=== PATIENT | female | born 1990 | race Caucasian/White ===

== ENCOUNTER 2020-08-26 00:09 | Emergency (ER) | payer OTHER, SELFPAY ==
--- NOTE | ~2020-08-26 | XR_ITS ---
EXAMINATION: XR CHEST CLINICAL INFORMATION: Cough COMPARISON: 10/06/2012 TECHNIQUE: AP portable upright view of the chest FINDINGS: Lungs are clear. No consolidation, pneumothorax, or pleural effusion. Cardiac and mediastinal contours are normal. Pulmonary vasculature is unremarkable. Osseous structures are unremarkable. XR/XR chest 1V IMPRESSION: No acute cardiopulmonary findings
[2020-08-26 00:37] VITALS: BP 104/61; PULSE 73; RESP 15; TEMP 36.8; O2SAT 100; BMI 27.4
[2020-08-26 00:49] VITALS: O2SAT 100
[2020-08-26 01:27] LABS: COVID-19 Test Negative (Negative)
--- NOTE | 2020-08-26 01:29 | ED.URI ---
HPI - URI/Sore Throat General Chief Complaint: Upper Respiratory Symptoms Stated Complaint: Flu Like Symptoms Time Seen by Provider: 08/26/20 01:02 Source: patient Mode of arrival: ambulatory Limitations: no limitations History of Present Illness HPI Narrative: 20-year-old female who denies significant past medical or surgical history she presents today with complaint of states she woke up this morning with runny nose and congestion feeling like she has sinus congestion. States she gradually developed a cough throughout the day with slight wheezing with associated cough. States she has not had any fever. States with the cough she had slight shortness of breath but otherwise no shortness of breath on exertion or at rest. No chest pain. Additionally she does report that her boyfriend tested positive today for COVID-19. States she has had COVID-19 in the past April. MD elicited complaint: cough, rhinorrhea and nasal congestion Onset (ago): day(s) (1) Severity: moderate Description of mucous: clear Able to tolerate fluids by mouth: Yes Exacerbating factors: nothing Relieving factors: nothing Context: sick contacts Associated symptoms: denies other symptoms Treatments prior to arrival: none Related Data Previous Rx's Medication Instructions Recorded albuterol sulfate 2 puff INHALATION Q4-6H PRN #8.5 g 08/26/20 azithromycin [Zithromax Z-Nish] See Rx Instructions .ROUTE 08/26/20 .COMPLEX #6 tab prednisone 60 mg PO DAILY 5 Days #15 tab 08/26/20 Allergies Allergy/AdvReac Type Severity Reaction Status Date / Time amoxicillin [AMOXICILLIN] Allergy Intermediate HIVES Unverified 11/17/19 16:05 Penicillins [PENICILLINS] Allergy Mild HIVES Unverified 11/17/19 16:05 penicillin V Allergy Unknown Verified 02/24/14 00:00 oxycodone [From PERCOCET] AdvReac Intermediate NAUSEA & Unverified 11/17/19 16:05 VOMITING Review of Systems Review of Systems: Constitutional: No Weight loss, No Fever, No Chills, No Night Sweats, No Fatigue, No Malaise ENT/Mouth: No Hearing loss, No Ear Pain, + Nasal Congestion, No Sinus Pain, No Hoarseness, No sore throat, + Rhinorrhea, No Swallowing Difficulty Eyes: No Eye Pain, No Swelling, No Redness, No Foreign Body, No Discharge, No Vision Changes Cardiovascular: No Chest Pain, No SOB, No Dyspnea on Exertion, No Orthopnea, No Edema, No Palpitations Respiratory: + Cough, No Sputum, No Wheezing, No Smoke Exposure, No Dyspnea Gastrointestinal: No Nausea, No Vomiting, No Diarrhea, No Constipation, No abdominal Pain, No Hematochezia, No Melena Genitourinary: no irregular bleeding, No Dysuria, No Urinary Frequency, No Hematuria, No Urinary Incontinence, No Urgency, No Flank Pain, No Urinary Flow Changes, No Hesitancy Musculoskeletal: No joint pain, No Myalgias, No Joint Swelling Skin: No Skin Lesions, No rash Neuro: No Weakness, No Numbness, No Paresthesias, No Loss of Consciousness, No Dizziness, No Headache Psych: No Social Issues Heme/Lymph: No Bruising, No Bleeding,No Lymphadenopathy Endocrine: No Polyuria, No Polydipsia, No Temperature Intolerance Yes all other systems are reviewed and are negative [facility] Past Medical History Medical History (Updated 08/26/20 @ 01:31 by Aman Murray NP) No known health problems Surgical History (Updated 08/26/20 @ 00:44 by Debbie Larsen) Hx of appendectomy Social History Social History Alcohol intake: never Patient Tobacco Use Status: Never used Tobacco Use of substances other than those prescribed or required for medical reasons: Yes Substance Use Type: Marijuana Substance Use Frequency: Daily Advance Directives: No Patient : Yes Physical Exam Vital Signs: Vital Signs: Last Vital Signs Temp 98.3 F 08/26/20 00:37 Pulse 73 08/26/20 00:37 Resp 15 08/26/20 00:37 BP 104/61 08/26/20 00:37 Pulse Ox 100 08/26/20 00:49 Body Mass Index 27.4 Reviewed Const: General: cooperative and healthy appearing; No acute distress or intoxicated appearing Nutritional Appearance: average body habitus Orientation/consciousness: patient oriented x3 HENMT: Head: Yes normal to inspection Ears: hearing grossly normal bilaterally Eyes: General: appearance normal, both eyes and all related structures Visual Huynh: normal visual huynh by confrontation Neck: Neck: Yes normal visual inspection, No positive Brudzinski's sign, No positive Kernig's sign and No tender Thyroid: Thyroid normal Chest: Chest palpation & inspection: normal inspection of the chest Resp: Other: slight dry bronchial cough Effort & Inspection: normal respiratory effort Auscultation: clear to auscultation bilaterally Cardio: Jugular venous distension: no JVD Rhythm: regular rhythm Heart sounds: S1 normal heart sound present and S2 normal heart sound present GI: Inspection: Yes normal to inspection Percussion: Yes normal to percussion Auscultation: normal bowel sounds : General: Yes no CVA tenderness Back/Spine/Pelvis: Back: no CVA tenderness Skin: General skin exam: no rashes or lesions noted Neuro: General: patient oriented x3 Extrem: General: Yes normal to inspection Course Reevaluation(s) Reevaluation #1: COVID-19 negative aware this could be early false negative she must follow guidelines Chest x-ray unremarkable No chest pain shortness of breath Pulse ox 100% on room air Does have slight dry bronchial cough with forced expiratory wheezing. She does have history of bronchitis Will start her on albuterol inhaler, azithromycin and prednisone. Will discharge home with clear precaution return and follow-up instructions. She feels comfortable plan. Stable for discharge. MDM - URI/Sore Throat Lab Data Labs: Lab Results 08/26/20 Range/Units 01:06 COVID-19 (KAREN) Negative (Negative) COVID-19 Clin Com See Note Discharge Plan Discharge Clinical Impression: Upper respiratory infection, Bronchitis Patient Disposition: Home, Self-Care Instructions: Upper Respiratory Infection (ED), Acute Bronchitis (ED) Additional Instructions: your chest x-ray did not show any evidence of acute disease Your COVID test was negative- given that your exposure to her boyfriend who is COVID positive and you having similar symptoms I suspect that this may be a false negative for this reason you should quarantine yourself Social distancing Push fluids and supportive care Taking medication prescribed Return if any concerns or worsening symptoms including chest pain, shortness of breath, chest pain, nausea, vomiting or any other concerning symptoms otherwise do tele visit with her primary care doctor in the next 7 days. thank you Prescriptions: New azithromycin [Zithromax Z-Nish] 250 mg tablet See Rx Instructions .ROUTE .COMPLEX Qty: 6 RF: 0 prednisone 20 mg tablet 60 mg PO DAILY 5 Days Qty: 15 RF: 0 albuterol sulfate 90 mcg/actuation HFA aerosol inhaler 2 puff inhalation Q4-6H PRN (Reason: shortness of breath or wheezing) Qty: 8.5 RF: 0 Referrals: Physician,Unknown [Primary Care Provider] - 1 week
== END 2020-08-26 01:40 | disposition home or self-care (01) ==
PROVIDERS: Nurse Practitioner Primary Care; Emergency Provider Emergency Medicine
DX: J06.9 Acute upper respiratory infection, unspecified (principal); J40 Bronchitis, not specified as acute or chronic; Z20.822 Contact with and (suspected) exposure to COVID-19
CPT/HCPCS: 36415; 71045; 87635; 99283; 99284

== ENCOUNTER 2021-01-24 10:08 | Emergency (ER) | payer OTHER, SELFPAY ==
--- NOTE | ~2021-01-24 | US_ITS ---
EXAMINATION: US ABDOMEN LIMITED CLINICAL INFORMATION: Abdominal pain. Question gallstones.. COMPARISON: Abdomen and pelvic CT of 04/10/2017, abdominal ultrasound of 09/25/2014 TECHNIQUE: Real-time imaging of the gallbladder as requested by referring provider FINDINGS: GALLBLADDER: The gallbladder is physiologically distended. Multiple mobile gallstones are noted. No evidence of gallbladder wall thickening or pericholecystic fluid. COMMON BILE DUCT: The visualized common bile duct is normal in caliber measuring 0.3 cm in diameter. LIVER: The visualized portions are unremarkable. FREE FLUID: None. US/US abdomen limited IMPRESSION: Cholelithiasis without sonographic evidence of acute cholecystitis. No evidence of dilatation of the visualized common bile duct. No filling defect is noted in the visualized common bile duct.
[2021-01-24 10:12] VITALS: BP 135/47; PULSE 79; RESP 18; TEMP 37.1; O2SAT 100; BMI 19.9
--- NOTE | 2021-01-24 10:22 | ECG_ITS ---
Test Reason : ABDOMINAL PAIN Blood Pressure : / mmHG Vent. Rate : 066 BPM Atrial Rate : 066 BPM P-R Int : 136 ms QRS Dur : 090 ms QT Int : 432 ms P-R-T Axes : 012 061 045 degrees QTc Int : 452 ms Normal sinus rhythm Normal ECG No previous ECGs available Referred By: Randy Proctor Electronically Signed By:MICHAEL HART MD
--- NOTE | 2021-01-24 10:41 | ED.ABDPAIN ---
HPI - Abdominal Pain General Chief Complaint: Abdominal Pain <SEBASTIEN Porras Last Filed: 01/24/21 16:02> Stated Complaint: upper abd pain <SEBASTIEN Porras Last Filed: 01/24/21 16:02> Time Seen by Provider: 01/24/21 12:57 <SEBASTIEN Porras Last Filed: 01/24/21 16:02> Source: patient <SEBASTIEN Porras Last Filed: 01/24/21 16:02> Mode of arrival: ambulatory <SEBASTIEN Porras Last Filed: 01/24/21 16:02> Limitations: no limitations <SEBASTIEN Porras Last Filed: 01/24/21 16:02> History of Present Illness HPI narrative: 30 yold female with no pmh presents to the ED for upper/RUQ abdominal pain. Patient states everytime she has her menstruation she has this pain. Patient denies any nausea and emesis. patient states no lower abdominal pain, fever, chills, flank pain, chest pain, shortness of breath, or back pain. <SEBASTIEN Porras Last Filed: 01/24/21 16:02> Related Data Home Medications: Previous Rx's Medication Instructions Recorded albuterol sulfate 90 mcg/actuation 2 puff INHALATION Q4-6H PRN #8.5 g 08/26/20 aerosol inhaler azithromycin 250 mg tablet See Rx Instructions .ROUTE 08/26/20 (Zithromax Z-Nish) .COMPLEX #6 tab prednisone 20 mg tablet 60 mg PO DAILY 5 Days #15 tab 08/26/20 ketorolac 10 mg tablet 10 mg PO QID PRN 5 Days #20 tab 01/24/21 <SEBASTIEN Porras Last Filed: 01/24/21 16:02> Allergies/Adverse Reactions: Allergies Allergy/AdvReac Type Severity Reaction Status Date / Time amoxicillin [AMOXICILLIN] Allergy Intermediate HIVES Unverified 11/17/19 16:05 Penicillins [PENICILLINS] Allergy Mild HIVES Unverified 11/17/19 16:05 penicillin V Allergy Unknown Verified 02/24/14 00:00 oxycodone [From PERCOCET] AdvReac Intermediate NAUSEA & Unverified 11/17/19 16:05 VOMITING <SEBASTIEN Porras Last Filed: 01/24/21 16:02> Review of Systems Review of Systems Yes all other systems are reviewed and are negative <SEBASTIEN Porras - Last Filed: 01/24/21 16:02> Constitutional: Reports as per HPI and Reports no additional constitutional complaints <SEBASTIEN Porras Last Filed: 01/24/21 16:02> Eyes: Reports as per HPI and Reports no additional eye complaints <SEBASTIEN Porras - Last Filed: 01/24/21 16:02> Reports system reviewed and no additional complaints, except as documented and Reports as per HPI <SEBASTIEN Porras Last Filed: 01/24/21 16:02> Cardiovascular: Reports as per HPI and Reports no additional cardiovascular complaints <SEBASTIEN Porras Last Filed: 01/24/21 16:02> Respiratory: Reports as per HPI and Reports no additional respiratory complaints <SEBASTIEN Porras Last Filed: 01/24/21 16:02> Gastrointestinal: Reports as per HPI, Reports no additional gastrointestinal complaints and Reports abdominal pain (upper abdominal pain. ) <SEBASTIEN Porras Last Filed: 01/24/21 16:02> Genitourinary: Reports no additional female genitourinary complaints and Reports as per HPI <SEBASTIEN Porras Last Filed: 01/24/21 16:02> Comments: menstruation <SEBASTIEN Porras Last Filed: 01/24/21 16:02> Musculoskeletal: Reports no additional musculoskeletal complaints and Reports as per HPI <SEBASTIEN Porras Last Filed: 01/24/21 16:02> Psychiatric: Reports no additional psychiatric complaints and Reports as per HPI <SEBASTIEN Porras Last Filed: 01/24/21 16:02> Physical Exam Vital Signs: Vital Signs: Last Vital Signs Temp 98.3 F 01/24/21 13:19 Pulse 58 01/24/21 13:19 Resp 16 01/24/21 13:19 BP 105/61 01/24/21 13:19 Pulse Ox 100 01/24/21 13:19 Body Mass Index 19.9 <SEBASTIEN Porras Last Filed: 01/24/21 16:02> Vital Signs: Last Vital Signs Temp 98.3 F 01/24/21 13:19 Pulse 58 01/24/21 13:19 Resp 16 01/24/21 13:19 BP 105/61 01/24/21 13:19 Pulse Ox 100 01/24/21 13:19 Body Mass Index 19.9 <Zhen Neff MD - Last Filed: 01/24/21 13:16> Const: General: cooperative, healthy appearing, comfortable, no acute distress, well developed, alert, awake, Physically active and acute distress <SEBASTIEN Porras Last Filed: 01/24/21 16:02> Orientation/consciousness: patient oriented x3 <SEBASTIEN Porras Last Filed: 01/24/21 16:02> HENMT: Head: Yes normal to inspection, Yes No palpable skull fracture present, Yes normocephalic and Yes atraumatic <SEBASTIEN Porras Last Filed: 01/24/21 16:02> Eyes: General: appearance normal, both eyes and all related structures <SEBASTIEN Porras - Last Filed: 01/24/21 16:02> Neck: Neck: Yes normal visual inspection, Yes full ROM, Yes no lymphadenopathy, Yes no meningeal signs, Yes trachea midline, Yes supple, No anterior neck swelling and No tender <SEBASTIEN Porras Last Filed: 01/24/21 16:02> Chest: Chest palpation & inspection: normal inspection of the chest and normal palpation of entire chest wall <SEBASTIEN Porras Last Filed: 01/24/21 16:02> Resp: Effort & Inspection: normal respiratory effort and able to speak in complete sentences <SEBASTIEN Porras Last Filed: 01/24/21 16:02> Auscultation: clear to auscultation bilaterally <SEBASTIEN Porras Last Filed: 01/24/21 16:02> Cardio: Jugular venous distension: no JVD <SEBASTIEN Porras Last Filed: 01/24/21 16:02> Heart sounds: S1 normal heart sound present and S2 normal heart sound present <SEBASTIEN Porras Last Filed: 01/24/21 16:02> GI: Inspection: Yes normal to inspection and No abdominal wall ecchymosis <SEBASTIEN Porras - Last Filed: 01/24/21 16:02> Palpation (GI): Soft to palpation, not firm, Tenderness to palpation present (GI) in the epigastrum and in the RUQ, no guarding and not rigid <SEBASTIEN Porras Last Filed: 01/24/21 16:02> : General: No CVA tenderness and Yes no CVA tenderness <SEBASTIEN Porras Last Filed: 01/24/21 16:02> Back/Spine/Pelvis: Back: no CVA tenderness, No CVA tenderness and No back tenderness <SEBASTIEN Porras Last Filed: 01/24/21 16:02> Skin: General skin exam: no rashes or lesions noted and elasticity normal <SEBASTIEN Porras Last Filed: 01/24/21 16:02> Neuro: General: patient oriented x3, moves all extremities, no meningeal signs and CN's II-XI intact bilaterally <SEBASTIEN Porras Last Filed: 01/24/21 16:02> Cranial nerves: Yes CN's II-XII intact bilaterally <SEBASTIEN Porras Last Filed: 01/24/21 16:02> Extrem: General: Yes normal to inspection and Yes full ROM <SEBASTIEN Porras Last Filed: 01/24/21 16:02> Psych: Appearance: grossly normal, well kempt and not disheveled <SEBASTIEN Porras Last Filed: 01/24/21 16:02> Course Course Course Narrative: Bedside ultrasound was done which showed gallstones. Will do basic labs and send for official ultraousnd. patient has chronic anemic due to history heavy bleeding menstruation. Patient states she has been non-compliant with her Iron pills. GI cocktail ordered <SEBASTIEN Porras Last Filed: 01/24/21 16:02> Reevaluation(s) Reevaluation #1: Patient CBC shows chronic anemia. patient presently is on her menstruation. Vital signs stable. not suspecting GI bleed. patient denies hemoorhaging bleeding. Patient educated on being compliant with Her iron pills. Offical ultrasould pending <SEBASTIEN Porras Last Filed: 01/24/21 16:02> Time: 12:15 <SEBASTIEN Porras - Last Filed: 01/24/21 16:02> Reevaluation #2: Official ultrasound shows gallstones. Results were discussed the patient was informed presently no indication for surgery there is no cholecystitis. Patient informed to follow-up with outpatient surgery. Patient educated on changing her diet decrease in fatty foods fried food due to gallstones. Patient is safe for discharge <SEBASTIEN Porras - Last Filed: 01/24/21 16:02> discussed plan with SEBASTIEN Proctor <Zhen Neff MD - Last Filed: 01/24/21 13:16> Time: 13:16 <SEBASTIEN Porras - Last Filed: 01/24/21 16:02> 13:15 <Zhen Neff MD - Last Filed: 01/24/21 13:16> Reevaluation #3: Official ultrasound shows gallstones. Results were discussed the patient was informed presently no indication for surgery there is no cholecystitis. Patient informed to follow-up with outpatient surgery. Patient educated on changing her diet decrease in fatty foods fried food due to gallstones. Patient is safe for discharge. No blood transfusion indicated. Patient is hemodynamically stable <SEBASTIEN Porras - Last Filed: 01/24/21 16:02> MDM - Abdominal Pain MDM Narrative Medical decision making narrative: Gallstones <SEBASTIEN Porras - Last Filed: 01/24/21 16:02> Lab Data Result diagrams: : 01/24/21 10:39 01/24/21 10:39 <SEBASTIEN Porras - Last Filed: 01/24/21 16:02> Labs: Lab Results 01/24/21 01/24/21 01/24/21 Range/Units 10:39 10:39 10:39 WBC 9.3 (4.8-10.8) X10*3/uL RBC 3.62 L (4.20-5.50) X10*6/uL Hgb 8.0 L (12.0-16.0) g/dl Hct 26.3 L (37.0-47.0) % MCV 72.7 L (80.0-98.0) fL MCH 22.1 L (27.0-33.0) pg MCHC 30.4 L (31.0-35.0) g/dl RDW 15.5 (11.0-16.0) % Plt Count 232 (160-400) X10*3/uL MPV 10.6 (9.4-12.3) fL Immature Gran % (Auto) 0.4 (0.0-0.4) % Neut % (Auto) 77.6 H (45-73) % Lymph % (Auto) 14.0 L (20-40) % [place] % (Auto) 7.2 (2-11) % Eos % (Auto) 0.5 (0-4) % Baso % (Auto) 0.3 (0-2) % Lymph # (Auto) 1.3 (1.2-4.9) X10*3/uL [place] # (Auto) 0.7 (0.1-1.2) X10*3/uL Eos # (Auto) 0.1 (0.0-0.4) X10*3/uL Baso # (Auto) 0.0 (0.0-0.2) X10*3/uL Abs Immat Gran (auto) 0.04 H (0.00-0.03) X10*3/uL Absolute Neuts (auto) 7.2 (2.0-8.3) x10*3/uL Absolute Nucleated RBC 0.000 (0.0-0.012) X10*3/uL Nucleated RBC % (auto) 0.0 (0.0-0.2) /100WBC Sodium 138 (135-145) mmol/L Potassium 3.9 (3.3-5.1) mmol/L Chloride 109 H (96-108) mmol/L Carbon Dioxide 23 (22-29) mmol/L Anion Gap 10 L (12-20) BUN 9 (9-16) mg/dL Creatinine 0.73 (0.5-1.4) mg/dL Estim Creat Clear Calc 93.6 Estimated GFR > 60 Random Glucose 80 (60-115) mg/dL Calcium 8.5 (8.4-10.2) mg/dL Total Bilirubin 0.5 (0.0-1.0) mg/dL Direct Bilirubin 0.3 (0.0-0.5) mg/dL AST 21 (5-31) U/L ALT 15 (0-31) U/L Alkaline Phosphatase 47 (39-117) U/L Troponin I High Sens < 3.5 (<3.5-17.0) ng/L Total Protein 6.7 (6.5-8.0) g/dL Albumin 4.1 (3.5-5.0) g/dL Lipase 18 (8-78) U/L Beta HCG, Quant < 2 mIU/mL Urine Color Urine Appearance Urine pH (5.0-8.0) Ur Specific [place] (1.005-1.025) Urine Protein (NEG-TRACE) MG/DL Urine Glucose (UA) (NEG) MG/DL Urine Ketones (NEG) MG/DL Urine Blood (NEG) Urine Nitrite (NEG) Ur Leukocyte Esterase (NEG) 01/24/21 Range/Units 10:39 WBC (4.8-10.8) X10*3/uL RBC (4.20-5.50) X10*6/uL Hgb (12.0-16.0) g/dl Hct (37.0-47.0) % MCV (80.0-98.0) fL MCH (27.0-33.0) pg MCHC (31.0-35.0) g/dl RDW (11.0-16.0) % Plt Count (160-400) X10*3/uL MPV (9.4-12.3) fL Immature Gran % (Auto) (0.0-0.4) % Neut % (Auto) (45-73) % Lymph % (Auto) (20-40) % [place] % (Auto) (2-11) % Eos % (Auto) (0-4) % Baso % (Auto) (0-2) % Lymph # (Auto) (1.2-4.9) X10*3/uL [place] # (Auto) (0.1-1.2) X10*3/uL Eos # (Auto) (0.0-0.4) X10*3/uL Baso # (Auto) (0.0-0.2) X10*3/uL Abs Immat Gran (auto) (0.00-0.03) X10*3/uL Absolute Neuts (auto) (2.0-8.3) x10*3/uL Absolute Nucleated RBC (0.0-0.012) X10*3/uL Nucleated RBC % (auto) (0.0-0.2) /100WBC Sodium (135-145) mmol/L Potassium (3.3-5.1) mmol/L Chloride (96-108) mmol/L Carbon Dioxide (22-29) mmol/L Anion Gap (12-20) BUN (9-16) mg/dL Creatinine (0.5-1.4) mg/dL Estim Creat Clear Calc Estimated GFR Random Glucose (60-115) mg/dL Calcium (8.4-10.2) mg/dL Total Bilirubin (0.0-1.0) mg/dL Direct Bilirubin (0.0-0.5) mg/dL AST (5-31) U/L ALT (0-31) U/L Alkaline Phosphatase (39-117) U/L Troponin I High Sens (<3.5-17.0) ng/L Total Protein (6.5-8.0) g/dL Albumin (3.5-5.0) g/dL Lipase (8-78) U/L Beta HCG, Quant mIU/mL Urine Color STRAW Urine Appearance CLEAR Urine pH 6.0 (5.0-8.0) Ur Specific [place] <= 1.005 (1.005-1.025) Urine Protein NEG (NEG-TRACE) MG/DL Urine Glucose (UA) NEG (NEG) MG/DL Urine Ketones NEG (NEG) MG/DL Urine Blood NEG (NEG) Urine Nitrite NEG (NEG) Ur Leukocyte Esterase NEG (NEG) <SEBASTIEN Porras - Last Filed: 01/24/21 16:02> Lab Results 01/24/21 01/24/21 01/24/21 Range/Units 10:39 10:39 10:39 WBC 9.3 (4.8-10.8) X10*3/uL RBC 3.62 L (4.20-5.50) X10*6/uL Hgb 8.0 L (12.0-16.0) g/dl Hct 26.3 L (37.0-47.0) % MCV 72.7 L (80.0-98.0) fL MCH 22.1 L (27.0-33.0) pg MCHC 30.4 L (31.0-35.0) g/dl RDW 15.5 (11.0-16.0) % Plt Count 232 (160-400) X10*3/uL MPV 10.6 (9.4-12.3) fL Immature Gran % (Auto) 0.4 (0.0-0.4) % Neut % (Auto) 77.6 H (45-73) % Lymph % (Auto) 14.0 L (20-40) % [place] % (Auto) 7.2 (2-11) % Eos % (Auto) 0.5 (0-4) % Baso % (Auto) 0.3 (0-2) % Lymph # (Auto) 1.3 (1.2-4.9) X10*3/uL [place] # (Auto) 0.7 (0.1-1.2) X10*3/uL Eos # (Auto) 0.1 (0.0-0.4) X10*3/uL Baso # (Auto) 0.0 (0.0-0.2) X10*3/uL Abs Immat Gran (auto) 0.04 H (0.00-0.03) X10*3/uL Absolute Neuts (auto) 7.2 (2.0-8.3) x10*3/uL Absolute Nucleated RBC 0.000 (0.0-0.012) X10*3/uL Nucleated RBC % (auto) 0.0 (0.0-0.2) /100WBC Sodium 138 (135-145) mmol/L Potassium 3.9 (3.3-5.1) mmol/L Chloride 109 H (96-108) mmol/L Carbon Dioxide 23 (22-29) mmol/L Anion Gap 10 L (12-20) BUN 9 (9-16) mg/dL Creatinine 0.73 (0.5-1.4) mg/dL Estim Creat Clear Calc 93.6 Estimated GFR > 60 Random Glucose 80 (60-115) mg/dL Calcium 8.5 (8.4-10.2) mg/dL Total Bilirubin 0.5 (0.0-1.0) mg/dL Direct Bilirubin 0.3 (0.0-0.5) mg/dL AST 21 (5-31) U/L ALT 15 (0-31) U/L Alkaline Phosphatase 47 (39-117) U/L Troponin I High Sens < 3.5 (<3.5-17.0) ng/L Total Protein 6.7 (6.5-8.0) g/dL Albumin 4.1 (3.5-5.0) g/dL Lipase 18 (8-78) U/L Beta HCG, Quant < 2 mIU/mL Urine Color Urine Appearance Urine pH (5.0-8.0) Ur Specific [place] (1.005-1.025) Urine Protein (NEG-TRACE) MG/DL Urine Glucose (UA) (NEG) MG/DL Urine Ketones (NEG) MG/DL Urine Blood (NEG) Urine Nitrite (NEG) Ur Leukocyte Esterase (NEG) 01/24/21 Range/Units 10:39 WBC (4.8-10.8) X10*3/uL RBC (4.20-5.50) X10*6/uL Hgb (12.0-16.0) g/dl Hct (37.0-47.0) % MCV (80.0-98.0) fL MCH (27.0-33.0) pg MCHC (31.0-35.0) g/dl RDW (11.0-16.0) % Plt Count (160-400) X10*3/uL MPV (9.4-12.3) fL Immature Gran % (Auto) (0.0-0.4) % Neut % (Auto) (45-73) % Lymph % (Auto) (20-40) % [place] % (Auto) (2-11) % Eos % (Auto) (0-4) % Baso % (Auto) (0-2) % Lymph # (Auto) (1.2-4.9) X10*3/uL [place] # (Auto) (0.1-1.2) X10*3/uL Eos # (Auto) (0.0-0.4) X10*3/uL Baso # (Auto) (0.0-0.2) X10*3/uL Abs Immat Gran (auto) (0.00-0.03) X10*3/uL Absolute Neuts (auto) (2.0-8.3) x10*3/uL Absolute Nucleated RBC (0.0-0.012) X10*3/uL Nucleated RBC % (auto) (0.0-0.2) /100WBC Sodium (135-145) mmol/L Potassium (3.3-5.1) mmol/L Chloride (96-108) mmol/L Carbon Dioxide (22-29) mmol/L Anion Gap (12-20) BUN (9-16) mg/dL Creatinine (0.5-1.4) mg/dL Estim Creat Clear Calc Estimated GFR Random Glucose (60-115) mg/dL Calcium (8.4-10.2) mg/dL Total Bilirubin (0.0-1.0) mg/dL Direct Bilirubin (0.0-0.5) mg/dL AST (5-31) U/L ALT (0-31) U/L Alkaline Phosphatase (39-117) U/L Troponin I High Sens (<3.5-17.0) ng/L Total Protein (6.5-8.0) g/dL Albumin (3.5-5.0) g/dL Lipase (8-78) U/L Beta HCG, Quant mIU/mL Urine Color STRAW Urine Appearance CLEAR Urine pH 6.0 (5.0-8.0) Ur Specific [place] <= 1.005 (1.005-1.025) Urine Protein NEG (NEG-TRACE) MG/DL Urine Glucose (UA) NEG (NEG) MG/DL Urine Ketones NEG (NEG) MG/DL Urine Blood NEG (NEG) Urine Nitrite NEG (NEG) Ur Leukocyte Esterase NEG (NEG) <Zhen Neff MD - Last Filed: 01/24/21 13:16> Discharge Plan Discharge Clinical Impression: Cholelithiasis <SEBASTIEN Porras - Last Filed: 01/24/21 16:02> Patient Disposition: Home, Self-Care <SEBASTIEN Porras - Last Filed: 01/24/21 16:02> Instructions: Gallstones (ED) <SEBASTIEN Porras - Last Filed: 01/24/21 16:02> Additional Instructions: Your ultrasound shows gallstones. Her blood work came back at baseline. Presently no surgical intervention. Will be discharged with pain medications. Please cut down on fatty food and fried food. You need follow-up with surgeon. Return to the ED immediately for worsening abdominal pain, nausea, vomiting, fever, chills, green vomit, lower abdominal pain, weakness, dizziness, or any other concerning symptoms. <SEBASTIEN Porras - Last Filed: 01/24/21 16:02> Prescriptions: New ketorolac 10 mg tablet 10 mg PO QID PRN (Reason: pain) 5 Days Qty: 20 RF: 0 No Action azithromycin [Zithromax Z-Nish] 250 mg tablet See Rx Instructions .ROUTE .COMPLEX Qty: 6 RF: 0 prednisone 20 mg tablet 60 mg PO DAILY 5 Days Qty: 15 RF: 0 albuterol sulfate 90 mcg/actuation HFA aerosol inhaler 2 puff inhalation Q4-6H PRN (Reason: shortness of breath or wheezing) Qty: 8.5 RF: 0 <SEBASTIEN Porras - Last Filed: 01/24/21 16:02> Referrals: Janusz Wiggins MD [Physician] - 2 days (Cholelithiasis) <SEBASTIEN Porras - Last Filed: 01/24/21 16:02> Stand Alone Forms: Work/School Release <SEBASTIEN Porras - Last Filed: 01/24/21 16:02> Discharge Date/Time: 01/24/21 13:45 <SEBASTIEN Porras - Last Filed: 01/24/21 16:02> Print Language: Green[place]ic <SEBASTIEN Porras - Last Filed: 01/24/21 16:02> [facility] Past Medical History Medical History: Medical History (Updated 01/24/21 @ 13:32 by SEBASTIEN Porras) No known health problems <SEBASTIEN Porras - Last Filed: 01/24/21 16:02> Surgical History: Surgical History (Updated 08/26/20 @ 00:44 by Debbie Larsen) Hx of appendectomy <SEBASTIEN Porras - Last Filed: 01/24/21 16:02> Social History Social History: Social History Alcohol intake: never Patient Tobacco Use Status: Never used Tobacco Substance Use Type: Marijuana Advance Directives: No Patient : No <SEBASTIEN Porras Last Filed: 01/24/21 16:02>
[2021-01-24 10:45] LABS: MANUAL DIFF FLAG NO
[2021-01-24 10:50] LABS: Appearance Urine CLEAR; Color Urine STRAW; Glucose Urine UA NEG (NEG); Leukocyte Esterase Urine NEG (NEG); Nitrite Urine NEG (NEG); Specific Gravity - Urine <= 1.005 (1.005-1.025); Urine Blood NEG (NEG); Urine Ketones NEG (NEG); Urine Protein NEG (NEG-TRACE)
[2021-01-24 10:56] LABS: Basophils Percent Auto 0.3 % (0-2); Eosinophils Absolute Auto 0.1 X10*3/uL (0.0-0.4); Eosinophils Percent Auto 0.5 % (0-4); Hematocrit 26.3 % (37.0-47.0); Imm Gran Abs Auto 0.04 X10*3/uL (0.00-0.03); Imm Gran Pct Auto 0.4 % (0.0-0.4); Lymphocytes Absolute Auto 1.3 X10*3/uL (1.2-4.9); Mean Corpuscular HGB Conc 30.4 g/dl (31.0-35.0); Mean Corpuscular Hemoglobin 22.1 pg (27.0-33.0); Mean Corpuscular Volume 72.7 fL (80.0-98.0); Mean Platelet Volume 10.6 fL (9.4-12.3); Monocytes Absolute Auto 0.7 X10*3/uL (0.1-1.2); Monocytes Percent Auto 7.2 % (2-11); Neutrophils Absolute Auto 7.2 x10*3/uL (2.0-8.3); Neutrophils Percent Auto 77.6 % (45-73); Platelet Count 232 X10*3/uL (160-400); Red Blood Count 3.62 X10*6/uL (4.20-5.50); Red Cell Distribution Width 15.5 % (11.0-16.0); White Blood Count 9.3 X10*3/uL (4.8-10.8)
[2021-01-24] MEDS: Magnesium Hydrox/Alum Hydrox 30 ML ORAL.SUSP PO (11:05)
[2021-01-24] MEDS: PHENobarb/Hyoscy/Atropine/Scop 10 ML ELIXIR PO (11:05)
[2021-01-24] MEDS: Lidocaine HCl Viscous 2 % 15 ML SOLUTION MUCOUS MEM (11:10)
[2021-01-24] MEDS: Famotidine/PF 20 MG/2 ML VIAL IVPUSH (11:10)
[2021-01-24 11:12] LABS: Alanine Aminotransferase 15 U/L (0-31); Albumin Level 4.1 g/dL (3.5-5.0); Alkaline Phosphatase 47 U/L (39-117); Anion Gap 10 (12-20); Aspartate Amino Transferase 21 U/L (5-31); Bilirubin Direct 0.3 mg/dL (0.0-0.5); Bilirubin Total 0.5 mg/dL (0.0-1.0); Blood Urea Nitrogen 9 mg/dL (9-16); Calcium 8.5 mg/dL (8.4-10.2); Carbon Dioxide 23 mmol/L (22-29); Chloride 109 mmol/L (96-108); Creatinine Clr Calc Pharmacy 93.6; Estimated Glomerular Filt Rate > 60; Glucose Random 80 mg/dL (60-115); Lipase 18 U/L (8-78); Potassium 3.9 mmol/L (3.3-5.1); Sodium 138 mmol/L (135-145); Total Protein 6.7 g/dL (6.5-8.0)
[2021-01-24 11:18] LABS: HCG Quantitative < 2 mIU/mL; Troponin-I High Sensitivity < 3.5 ng/L (<3.5-17.0)
[2021-01-24] MEDS: Ketorolac Tromethamine 15 MG/ML VIAL 30 MG IVPUSH (13:06)
[2021-01-24 13:19] VITALS: BP 105/61; PULSE 58; RESP 16; TEMP 36.8; O2SAT 100
== END 2021-01-24 13:45 | disposition home or self-care (01) ==
PROVIDERS: Physician Assistant; Emergency Provider Emergency Medicine
DX: K80.20 Calculus of gallbladder without cholecystitis without obstruction (principal); R10.9 Unspecified abdominal pain; D50.0 Iron deficiency anemia secondary to blood loss (chronic); Z91.14 Patient's other noncompliance with medication regimen
CPT/HCPCS: 36415; 76705; 80053; 81003; 82248; 83690; 84484; 84702; 85025; 93005; 96374; 96375; 99284; J1885

== ENCOUNTER 2021-02-01 00:06 | Emergency (ER) | payer OTHER, SELFPAY ==
[2021-02-01 00:08] VITALS: BP 118/64; PULSE 62; RESP 16; TEMP 36.6; O2SAT 100; BMI 19.9
--- NOTE | 2021-02-01 00:30 | ED.HA ---
HPI - Headache General Chief Complaint: Headache Stated Complaint: Migraine Time Seen by Provider: 02/01/21 00:13 Source: patient and old records reviewed Mode of arrival: ambulatory Limitations: no limitations History of Present Illness MD elicited complaint: headache and migraine Pertinent past history: migraines Onset (ago): hour(s) (230pm) Onset description: gradually and while at rest Location: left Severity: moderate Quality & Timing: throbbing Exacerbating factors: light and noise Relieving factors: prescription medication (has not taken her amitryptiline due to working nights wasn't aware she could take it in AM when she sleep able to sleep for over 7 hours most days) Context: occurred at rest Associated symptoms: nausea Treatments prior to arrival: none Related Data Previous Rx's Medication Instructions Recorded albuterol sulfate 90 mcg/actuation 2 puff INHALATION Q4-6H PRN #8.5 g 08/26/20 aerosol inhaler azithromycin 250 mg tablet See Rx Instructions .ROUTE 08/26/20 (Zithromax Z-Nish) .COMPLEX #6 tab prednisone 20 mg tablet 60 mg PO DAILY 5 Days #15 tab 08/26/20 ketorolac 10 mg tablet 10 mg PO QID PRN 5 Days #20 tab 01/24/21 ferrous sulfate 325 mg (65 mg 325 mg PO DAILY #30 tab 02/01/21 iron) tablet ondansetron 4 mg disintegrating 4 mg PO Q8H PRN #20 tab 02/01/21 tablet Allergies Allergy/AdvReac Type Severity Reaction Status Date / Time amoxicillin [AMOXICILLIN] Allergy Intermediate HIVES Verified 02/01/21 00:16 Penicillins [PENICILLINS] Allergy Mild HIVES Verified 02/01/21 00:16 penicillin V Allergy Unknown Unknown Verified 02/01/21 00:16 oxycodone [From PERCOCET] AdvReac Intermediate NAUSEA & Verified 02/01/21 00:16 VOMITING Review of Systems Review of Systems: Constitutional : No Fever, No Chills, No Fatigue ENT/Mouth : No sore throat, No Rhinorrhea Eyes: No Eye Pain, No Swelling, No Redness Cardiovascular : No Chest Pain, No SOB, No Dyspnea on Exertion Respiratory : No Cough, No Sputum Gastrointestinal : pos Nausea, No Vomiting, No Diarrhea, No abdominal Pain Genitourinary : No Dysuria, No Urinary Frequency, No Hematuria, Musculoskeletal : No joint pain, No Myalgias, No Joint Swelling Skin : No Skin Lesions, No rash Neuro : No Weakness, No Numbness, No Dizziness, positive Headache Psych : No Anxiety/Panic, No Depression Heme/Lymph: No Bruising, No Bleeding,No Lymphadenopathy Endocrine : No Polyuria, No Polydipsia All other systems reviewed and are negative REPLACED BY [facility] Past Medical History Attestation statement: The following information was validated with the patient. Medical History Migraines No known health problems Surgical History Hx of appendectomy Social History Social History Alcohol intake: never Patient Tobacco Use Status: Never used Tobacco Substance Use Type: Marijuana Advance Directives: No Patient : No Physical Exam Vital Signs: Vital Signs: Last Vital Signs Temp 97.8 F 02/01/21 00:08 Pulse 62 02/01/21 00:08 Resp 16 02/01/21 00:08 BP 118/64 02/01/21 00:08 Pulse Ox 100 02/01/21 00:08 BMI result Body Mass Index 19.9 Appearance: Alert. Oriented X3. No acute distress. Eyes: Pupils equal, round and reactive to light. ENT: Pharynx normal. Neck: Normal inspection. Neck supple. no meningeal signs CVS: Normal heart rate and rhythm. Pulses normal. Respiratory: No respiratory distress. Breath sounds normal. Abdomen: Soft and nontender. Skin: Skin warm and dry. Normal skin color. Normal skin turgor. Extremities: No lower extremity edema. No calf ttp Neuro: Oriented X 3. No motor deficit. No sensory deficit. Course Course Course Narrative: patient is not taking Fe because her PCP did not Rx it patient feels much better stable for DC MDM - Headache MDM Narrative Medical decision making narrative: 30 yo female with hx of migraines here with typical migraine no AC therapy, no fevers, no neuro deficits, gradual onset doubt [employer] infection/SAH - at this time will treat with supportive medications. We also discussed since she works nights 6 days a week and can sleep til 5 when she gets home at nine that she should start taking her TCA in the morning. She is aware. Lab Data Result diagrams: 02/01/21 00:54 02/01/21 00:54 Labs: Lab Results 02/01/21 02/01/21 Range/Units 00:54 00:54 WBC 3.5 L (4.8-10.8) X10*3/uL RBC 3.50 L (4.20-5.50) X10*6/uL Hgb 7.7 L (12.0-16.0) g/dl Hct 25.4 L (37.0-47.0) % MCV 72.6 L (80.0-98.0) fL MCH 22.0 L (27.0-33.0) pg MCHC 30.3 L (31.0-35.0) g/dl RDW 15.8 (11.0-16.0) % Plt Count 270 (160-400) X10*3/uL MPV 10.5 (9.4-12.3) fL Immature Gran % (Auto) 0.3 (0.0-0.4) % Neut % (Auto) 48.8 (45-73) % Lymph % (Auto) 38.1 (20-40) % [place] % (Auto) 8.5 (2-11) % Eos % (Auto) 3.7 (0-4) % Baso % (Auto) 0.6 (0-2) % Lymph # (Auto) 1.3 (1.2-4.9) X10*3/uL [place] # (Auto) 0.3 (0.1-1.2) X10*3/uL Eos # (Auto) 0.1 (0.0-0.4) X10*3/uL Baso # (Auto) 0.0 (0.0-0.2) X10*3/uL Abs Immat Gran (auto) 0.01 (0.00-0.03) X10*3/uL Absolute Neuts (auto) 1.7 L (2.0-8.3) x10*3/uL Absolute Nucleated RBC 0.000 (0.0-0.012) X10*3/uL Nucleated RBC % (auto) 0.0 (0.0-0.2) /100WBC Sodium 140 (135-145) mmol/L Potassium 4.0 (3.3-5.1) mmol/L Chloride 109 H (96-108) mmol/L Carbon Dioxide 25 (22-29) mmol/L Anion Gap 10 L (12-20) BUN 9 (9-16) mg/dL Creatinine 0.68 (0.5-1.4) mg/dL Estim Creat Clear Calc 100.5 Estimated GFR > 60 Random Glucose 89 (60-115) mg/dL Calcium 8.7 (8.4-10.2) mg/dL Discharge Plan Discharge Clinical Impression: Migraine Qualifiers: Migraine type: without aura Status migrainosus presence: without status migrainosus Intractability: not intractable Qualified Code(s): G43.009 - Migraine without aura, not intractable, without status migrainosus Iron (Fe) deficiency anemia Qualifiers: Iron deficiency anemia type: other iron deficiency Qualified Code(s): D50.8 - Other iron deficiency anemias Patient Disposition: Home, Self-Care Instructions: Migraine Headache (ED), Iron Deficiency Anemia (ED) Additional Instructions: return to ED for any worsening symptoms or concerns it is okay to take your amitryptiline before you sleep in the morning Prescriptions: New ferrous sulfate 325 mg (65 mg iron) tablet 325 mg PO DAILY Qty: 30 RF: 2 ondansetron 4 mg tablet,disintegrating 4 mg PO Q8H PRN (Reason: nausea and vomiting) Qty: 20 RF: 0 No Action azithromycin [Zithromax Z-Nish] 250 mg tablet See Rx Instructions .ROUTE .COMPLEX Qty: 6 RF: 0 prednisone 20 mg tablet 60 mg PO DAILY 5 Days Qty: 15 RF: 0 albuterol sulfate 90 mcg/actuation HFA aerosol inhaler 2 puff inhalation Q4-6H PRN (Reason: shortness of breath or wheezing) Qty: 8.5 RF: 0 ketorolac 10 mg tablet 10 mg PO QID PRN (Reason: pain) 5 Days Qty: 20 RF: 0 Stand Alone Forms: Work/School Release
[2021-02-01] MEDS: Metoclopramide HCl 10 MG/2 ML VIAL IVPUSH (00:49)
[2021-02-01] MEDS: diphenhydrAMINE HCL 50 MG/ML VIAL 25 MG IVPUSH (00:49)
[2021-02-01] MEDS: 0.9 % Sodium Chloride 1,000 ML 999 ML IV (00:49)
[2021-02-01] MEDS: Ketorolac Tromethamine 15 MG/ML VIAL IVPUSH (00:50)
[2021-02-01 00:59] LABS: MANUAL DIFF FLAG NO
[2021-02-01 01:01] LABS: Basophils Percent Auto 0.6 % (0-2); Eosinophils Absolute Auto 0.1 X10*3/uL (0.0-0.4); Eosinophils Percent Auto 3.7 % (0-4); Hematocrit 25.4 % (37.0-47.0); Hemoglobin 7.7 g/dl (12.0-16.0); Imm Gran Abs Auto 0.01 X10*3/uL (0.00-0.03); Imm Gran Pct Auto 0.3 % (0.0-0.4); Lymphocytes Absolute Auto 1.3 X10*3/uL (1.2-4.9); Lymphocytes Percent Auto 38.1 % (20-40); Mean Corpuscular HGB Conc 30.3 g/dl (31.0-35.0); Mean Corpuscular Volume 72.6 fL (80.0-98.0); Mean Platelet Volume 10.5 fL (9.4-12.3); Monocytes Absolute Auto 0.3 X10*3/uL (0.1-1.2); Monocytes Percent Auto 8.5 % (2-11); Neutrophils Absolute Auto 1.7 x10*3/uL (2.0-8.3); Neutrophils Percent Auto 48.8 % (45-73); Platelet Count 270 X10*3/uL (160-400); Red Cell Distribution Width 15.8 % (11.0-16.0); White Blood Count 3.5 X10*3/uL (4.8-10.8)
[2021-02-01 01:15] LABS: Anion Gap 10 (12-20); Blood Urea Nitrogen 9 mg/dL (9-16); Calcium 8.7 mg/dL (8.4-10.2); Carbon Dioxide 25 mmol/L (22-29); Chloride 109 mmol/L (96-108); Creatinine Clr Calc Pharmacy 100.5; Estimated Glomerular Filt Rate > 60; Glucose Random 89 mg/dL (60-115); Sodium 140 mmol/L (135-145)
== END 2021-02-01 01:45 | disposition home or self-care (01) ==
PROVIDERS: Emergency Provider Emergency Medicine
DX: G43.009 Migraine without aura, not intractable, without status migrainosus (principal); D50.8 Other iron deficiency anemias
CPT/HCPCS: 36415; 80048; 85025; 96361; 96374; 96375; 99283; 99284; J1200; J1885; J2765

== ENCOUNTER → 2021-03-11 14:43 | Outpatient (BNVA) | payer OTHER, SELFPAY | PROVIDERS: Visit Provider Surgery | DX: K80.20 Calculus of gallbladder without cholecystitis without obstruction (principal) | CPT/HCPCS: 99202 ==

== ENCOUNTER 2021-04-19 08:21 | Day surgery (SDC) | payer OTHER, SELFPAY ==
[2021-04-12 16:10] VITALS: BMI 20.2
--- NOTE | 2021-04-18 09:22 | P.CONAN_ITS ---
Documented by User: Mary Ann Felix NP 04/18/21 09:35 HPI - Anesthesia Eval Consult details Narrative: 31yo F for Cholecystectomy Laparoscopic,poss open PMFSH Active Problems Active Problems: All Active Problems (Updated 03/11/21 @ 14:59 by Janusz Wiggins MD) Gallstones (Acute) Past Medical History Medical History Anemia Gallstones Hx MRSA infection Migraines No known health problems Surgical History Surgical History Hx of appendectomy Social History Social History Are you a primary home health care case manager to a significant other at home: No Do you presently have visiting nurse or other home services: No Alcohol intake: never Patient Tobacco Use Status: Never used Tobacco Use of substances other than those prescribed or required for medical reasons: Yes Substance Use Type: Marijuana Substance Use Frequency: Daily Have you been hit, kicked, punched, or otherwise hurt by someone within the past year? If so, by whom?: No Are you DNR?: No Advance Directives: No Advance Directives Information Provided: No Advance Directives on File: No Recently lost weight without trying: No Eating poorly because of decreased appetite: No Nutrition Risks: No Nutritional Risk Meds Allergies Allergy/AdvReac Type Severity Reaction Status Date / Time amoxicillin [AMOXICILLIN] Allergy Intermediate HIVES Verified 04/19/21 08:39 Penicillins [PENICILLINS] Allergy Mild HIVES Verified 04/19/21 08:39 oxycodone [From PERCOCET] AdvReac Intermediate NAUSEA & Verified 04/19/21 08:39 VOMITING Home Medications Medication Instructions Recorded Confirmed Last Taken Type amitriptyline 10 mg tablet 1 tab PO BEDTIME 04/12/21 04/12/21 Unknown History Exam Exam Date and Time: April 18, [id number] Height,Weight and Vital Signs: Height 5 ft 4 in Weight 53.524 kg Pertinent Lab Results Pertinent Lab Results: Laboratory Tests 02/01/21 02/01/21 00:54 00:54 WBC 3.5 L Hgb 7.7 L Hct 25.4 L Plt Count 270 Sodium 140 Potassium 4.0 Chloride 109 H Carbon Dioxide 25 BUN 9 Creatinine 0.68 Narrative Narrative: EKG 12/2020 Vent. Rate : 066 BPM ? ? Atrial Rate : 066 BPM ?? P-R Int : 136 ms? QRS Dur : 090 ms ? ? QT Int : 432 ms ? ? ? P-R-T Axes : 012 061 045 degrees ?? QTc Int : 452 ms ? Normal sinus rhythm Normal ECG No previous ECGs available Assessment and Plan Assessment Anesthesia Assessment: Chart Reviewed Documented by User: Viviane Gallagher MD 04/19/21 11:27 PMFSH Past Medical History Medical History Anemia Gallstones Hx MRSA infection Migraines No known health problems Family History Family history of problems with anesthesia: No Surgical History Surgical History Hx of appendectomy History of Problems with Anesthesia: No Social History Social History Are you a primary home health care case manager to a significant other at home: No Do you presently have visiting nurse or other home services: No Alcohol intake: never Patient Tobacco Use Status: Never used Tobacco Use of substances other than those prescribed or required for medical reasons: Yes Substance Use Type: Marijuana Substance Use Frequency: Daily Have you been hit, kicked, punched, or otherwise hurt by someone within the past year? If so, by whom?: No Are you DNR?: No Advance Directives: No Advance Directives Information Provided: No Advance Directives on File: No Recently lost weight without trying: No Eating poorly because of decreased appetite: No Nutrition Risks: No Nutritional Risk Meds Allergies Allergy/AdvReac Type Severity Reaction Status Date / Time amoxicillin [AMOXICILLIN] Allergy Intermediate HIVES Verified 04/19/21 08:39 Penicillins [PENICILLINS] Allergy Mild HIVES Verified 04/19/21 08:39 oxycodone [From PERCOCET] AdvReac Intermediate NAUSEA & Verified 04/19/21 08:39 VOMITING Home Medications Medication Instructions Recorded Confirmed Last Taken Type amitriptyline 10 mg tablet 1 tab PO BEDTIME 04/12/21 04/12/21 Unknown History Exam Height,Weight and Vital Signs: Height 5 ft 4 in Weight 53.524 kg Vital Signs Temp Pulse Resp BP Pulse Ox 98.1 F 67 16 108/50 L 99 04/19/21 09:10 04/19/21 09:10 04/19/21 09:10 04/19/21 09:10 04/19/21 09:10 Pertinent Lab Results Pertinent Lab Results: Laboratory Tests 02/01/21 02/01/21 00:54 00:54 WBC 3.5 L Hgb 7.7 L Hct 25.4 L Plt Count 270 Sodium 140 Potassium 4.0 Chloride 109 H Carbon Dioxide 25 BUN 9 Creatinine 0.68 Lab Results 04/19/21 04/19/21 Range/Units 08:40 09:03 WBC 3.5 L (4.8-10.8) X10*3/uL RBC 3.84 L (4.20-5.50) X10*6/uL Hgb 10.1 L D (12.0-16.0) g/dl Hct 32.4 L D (37.0-47.0) % MCV 84.4 (80.0-98.0) fL MCH 26.3 L (27.0-33.0) pg MCHC 31.2 (31.0-35.0) g/dl RDW 18.2 H (11.0-16.0) % Plt Count 200 D (160-400) X10*3/uL MPV 10.8 (9.4-12.3) fL Absolute Nucleated RBC 0.000 (0.0-0.012) X10*3/uL Nucleated RBC % (auto) 0.0 (0.0-0.2) /100WBC Urine Test NEGATIVE (NEGATIVE) Airway Mallampati Class: II TM Dist: >3cm Neck ROM: Full Loose/Missing/Broken Teeth: Yes (1Missing lower Right and left) Heart: RRR Lungs: CTAB Assessment and Plan Assessment Anesthesia Assessment: Anesthesia Plan Discussed Final Anesthetic Review Family History of Problems with Anesthesia: No History of Problems with Anesthesia: No NPO: Yes ASA Class: II Final Preanesthetic Review: No Changes in Pt Med Stat, Meds/Allgs Chart Reviewed, Consent Obtained/Reviewed and Anes Risks/Benef Reviewed Patient Risk: Low Procedure Risk: Low Assessment/Block/Sedation in SS: Assess/Block/Sedation-SS Anesthetic Plan Anesthetic Plan: GA Disposition: Standard PACU
[2021-04-19] VITALS (16 sets, daily range): BP systolic 88–124; BP diastolic 40–75; PULSE 53–85; RESP 14–17; TEMP 36.1–36.7; O2SAT 97–100
[2021-04-19 08:51] LABS: UPreg QC Valid YES; Urine Pregnancy NEGATIVE (NEGATIVE)
--- NOTE | 2021-04-19 08:54 | MHC.SHP ---
Pre-Procedural Eval Section A Date of Service: 04/19/21 Section B Chief Complaint: calculus of gallbladder Details of Present Illness: has had periodic epigastric and right upper quadrant pain with gallstones on ultrasound Relevant Family History (Specify if Yes): No Relevant Social History: None Present Medications: see Short Stay Collaborative assessment Medical History: No relevant PMH History of Previous Operations: No relevant previous surgery Allergies: Allergies Allergy/AdvReac Type Severity Reaction Status Date / Time amoxicillin [AMOXICILLIN] Allergy Intermediate HIVES Verified 04/19/21 08:39 Penicillins [PENICILLINS] Allergy Mild HIVES Verified 04/19/21 08:39 oxycodone [From PERCOCET] AdvReac Intermediate NAUSEA & Verified 04/19/21 08:39 VOMITING Review of Systems Sugical H&P ROS: Negative: Constitution, Cardiovascular, Respiratory, Neurological, Psychiatric, Hem-Onc, Allergic/Immunologic, Gastrointestinal, Genitourinary, Musculoskeletal, Integumentary, Endocrine and Eyes/Ears/Nose/Throat Exam Surgical H&P Exam: Normal: HEENT, Normal: Heart, Normal: Lungs, Normal: Extremities, Normal: Abdomen, Normal: Skin and Normal: Neurological Plan Diagnosis/Plan: Unchanged I have reviewed the history and physical and performed a pertinent physical examination on my patient. No changes have occurred unless specified.
[2021-04-19] MEDS: Acetaminophen 325 MG TABLET 650 MG PO (09:11)
[2021-04-19] MEDS: Lactated Ringers 1,000 ML 100 ML IVCONT (09:12)
[2021-04-19 09:18] LABS: Hematocrit 32.4 % (37.0-47.0); Hemoglobin 10.1 g/dl (12.0-16.0); Mean Corpuscular HGB Conc 31.2 g/dl (31.0-35.0); Mean Corpuscular Hemoglobin 26.3 pg (27.0-33.0); Mean Corpuscular Volume 84.4 fL (80.0-98.0); Mean Platelet Volume 10.8 fL (9.4-12.3); Platelet Count 200 X10*3/uL (160-400); Red Blood Count 3.84 X10*6/uL (4.20-5.50); Red Cell Distribution Width 18.2 % (11.0-16.0); White Blood Count 3.5 X10*3/uL (4.8-10.8)
--- NOTE | 2021-04-19 11:13 | P.OP_ITS ---
Operative Note Operative Note Date of Service: 04/19/21 Narrative: Preop diagnosis: Symptomatic gallstones Postop diagnosis: Symptomatic gallstones Procedure: Laparoscopic cholecystectomy Surgeon: Janusz Wiggins MD outpatient physical therapist assistant: SEBASTIEN Rivera The patient is a 31 year female with periodic right upper quadrant and epigastric pain and tenderness, along with gallstones. Her symptoms were consistent with gallbladder disease. She therefore wanted to proceed with cho lecystectomy. She understood the technique of laparoscopic cholecystectomy and possible open. She was aware of the risks including but not limited to bleeding, infections, injury to bowel, liver and bile ducts, as well as the benefits and alternatives. She had given consent She was brought to the operating room. She was placed supine under general anesthesia via endotracheal tube. The abdomen is prepped and draped in the usual sterile fashion. A surgical time-out was done. The patient received Cefotan 2 g IV preoperatively I made a short incision in the skin on the supra umbilical margin using a blade 15. This was carried down through the full-thickness of the skin subcutaneous fat. The peritoneum was entered. Through this incision a Tracy port was introduced. Pneumoperitoneum was introduced to a pressure of 15 mm hg. From here on, the rest of the procedure as done under vision with the laparoscopic With laparoscopic visualization, I proceeded to insert a 5/12 mm port in the epigastric area below the subcostal margin via small stab incision. 5 mm ports introduced through small incisions below the subcostal margin along the anterior axillary line and the midclavicular line. Graspers were placed through these working ports. The patient was placed in head-up and [id number] position. The gallbladder was seen. This was 9 inflamed and was supple. We were able to therefore apply grasper at the fundus and this was used to retract the gallbladder cephalad. Another grasper was applied towards the parts of the gallbladder and this was used to retract the gallbladder laterally. At this point therefore the gallbladder was being retracted in a cephalad and lateral fashion to put the area of the cystic duct on stretch. We proceeded to gently dissect fibrous and areolar tissue using the [place] dissector from the neck until was able to visualize the cystic duct. This was gently did circumferentially until we were able to confirm its confluence with the neck of the gallbladder. The cystic artery was seen running alongside this a little more posteriorly. At this point therefore we had achieved a critical view of the hepatocystic triangle. There were no other tubular structures in this area With the confluence of the cystic duct with the neck of the gallbladder confirmed, we applied clips on the cystic duct with 2 clips being applied dista lly and the cystic duct was transected with clips with Endo scissors. Clips were then applied on the cystic artery as well and this was transected with clips with Endo scissors. With traction on the gallbladder away from the liver bed, I proceeded to then divide across the hilum with the electrocautery spatula. I reached the interface of the gallbladder wall and the liver bed and excised the hernia more using the electrocautery spatula. I proceeded to define a plane of dissection between the gallbladder wall and the liver bed using a combination of blunt dissection with the tip of the spatula and electrocautery. I proceeded to separate the gallbladder along this well-defined plane of dissection although the fundus until the entire gallbladder was completely . The gallbladder was retrieved through an endobag through the epigastric incision Reinserted all ports and re-insufflated. There was note of good hemostasis on the subhepatic space. I examined all 4 quadrants. There was no other pathology or any evidence of bowel injury I re-examined the subhepatic space. There was no evidence of any bile leak, or significant bleeding. Once hemostasis was ensured, we desufflated the port size. I removed all ports under vision with the laparoscope. The umbilical port was removed last. The fascia of the umbilical incision was closed with [id number] Dexon 0 stitch. Skin closure was achieved on all incisions using Dexon 4-0 subcuticular running sutures. Steri-Strips and dressings were applied. All incisions were infiltrated with Marcaine 0.5% for postop analgesia. The procedure was then completed The patient tolerated procedure well. There were no complications noted. Initial and final counts of sponges and instruments were correct. Estimated b lood loss was about 25 cc The patient was extubated without difficulty and transferred to the recovery room with stable vital signs.
[2021-04-19] MEDS: fentaNYL citrate/PF 100 MCG/2 ML VIAL 25 MCG IVPUSH ×3 (11:49→13:22)
[2021-04-19] MEDS: ondansetron HCL 4 MG/2 ML VIAL IVPUSH (11:51)
[2021-04-19] MEDS: HYDROcodone Bit/Acetam 5/325 TABLET 1 TAB PO (11:53)
== END 2021-04-19 14:20 | disposition home or self-care (01) ==
PROVIDERS: Nurse Practitioner; Visit Provider Surgery
PROC: 0FT44ZZ Resection of Gallbladder, Percutaneous Endoscopic Approach (ICD-10-PCS; CPT 47562; principal; 2021-04-19 10:10)
DX: K80.10 Calculus of gallbladder with chronic cholecystitis without obstruction (principal); F12.90 Cannabis use, unspecified, uncomplicated; Z79.899 Other long term (current) drug therapy; Z88.0 Allergy status to penicillin; Z88.8 Allergy status to other drugs, medicaments and biological substances
CPT/HCPCS: 47562; 36415; 81025; 85027; 88304; J1100; J1885; J2250; J2405; J2550; J3010

== ENCOUNTER → 2021-04-29 10:47 | Outpatient (BNVA) | payer OTHER, SELFPAY | PROVIDERS: Visit Provider Surgery | DX: Z48.815 Encounter for surgical aftercare following surgery on the digestive system (principal); Z90.49 Acquired absence of other specified parts of digestive tract | CPT/HCPCS: 99212 ==

== ENCOUNTER 2021-09-30 17:37 | Emergency (ER) | payer OTHER, SELFPAY ==
[2021-09-30 20:16] VITALS: BP 102/63; PULSE 63; RESP 18; TEMP 36.8; O2SAT 99; BMI 19.9
[2021-09-30 20:45] LABS: COVID-19 Test Negative (Negative)
--- NOTE | 2021-09-30 21:09 | ED.GENADULT ---
HPI - General Adult General Chief complaint: Upper Respiratory Symptoms Stated complaint: COVID Symptoms Time Seen by Provider: 09/30/21 20:34 Source: patient Mode of arrival: ambulatory Limitations: no limitations History of Present Illness HPI narrative: 31 yold female presents to the ED for runny nose and cough for 1 weeks. patient states mutiple negative covid tests at home. patient denies any chest pain or shortness of breath. 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 Related Data Home Medications Medication Instructions Recorded Confirmed amitriptyline 10 mg tablet 1 tab PO BEDTIME 04/12/21 04/12/21 Previous Rx's Medication Instructions Recorded ferrous sulfate 325 mg (65 mg 325 mg PO DAILY #30 tabs 02/01/21 iron) tablet ondansetron 4 mg disintegrating 4 mg PO Q8H PRN nausea and 02/01/21 tablet vomiting #20 tabs ibuprofen 600 mg tablet 600 mg PO Q6H PRN pain #30 tabs 04/19/21 oxycodone-acetaminophen 5 mg-325 1 tab PO Q4-6H PRN pain, severe 04/19/21 mg tablet (Percocet) #30 tabs albuterol sulfate 90 mcg/actuation 2 puff inhalation QID PRN 09/30/21 aerosol inhaler shortness of breath or wheezing #8.5 grams azithromycin 250 mg tablet See Rx Instructions PO .COMPLEX #6 09/30/21 tabs benzonatate 100 mg capsule 100 mg PO TID PRN cough 5 days #15 09/30/21 caps Allergies Allergy/AdvReac Type Severity Reaction Status Date / Time amoxicillin [AMOXICILLIN] Allergy Intermediate HIVES Verified 09/30/21 20:16 Penicillins [PENICILLINS] Allergy Mild HIVES Verified 09/30/21 20:16 oxycodone [From PERCOCET] AdvReac Intermediate NAUSEA & Verified 09/30/21 20:16 VOMITING Review of Systems Review of Systems: cough Yes all other systems are reviewed and are negative PMFSH Past Medical History Medical History Anemia Gallstones Hx MRSA infection Migraines No known health problems Surgical History History of laparoscopic cholecystectomy Hx of appendectomy Social History Social History Are you a primary healthcare consulting manager to a significant other at home: No Do you presently have visiting nurse or other home services: No Alcohol intake: never Patient Tobacco Use Status: Never used Tobacco Substance Use Type: Marijuana Advance Directives: No Advance Directives Information Provided: No Physical Exam ED Vital Signs: Vital Signs - 24 hr 09/30/21 20:16 Temperature 98.2 F Pulse Rate 63 Respiratory Rate 18 Blood Pressure 102/63 Pulse Oximetry 99 Oxygen Delivery Method Room Air BMI result Body Mass Index 19.9 Const General: cooperative, healthy appearing, comfortable, no acute distress, well developed, alert, awake and Physically active Orientation/consciousness: patient oriented x3 HENMT Head: Yes normal to inspection, Yes No palpable skull fracture present, Yes normocephalic, Yes atraumatic and No abrasion Throat: Yes posterior oropharynx normal, Yes tonsils normal and Yes uvula midline Eyes General: appearance normal, both eyes and all related structures Neck Neck: Yes normal visual inspection, Yes full ROM, Yes no lymphadenopathy, Yes no meningeal signs, Yes trachea midline, Yes supple, No anterior neck swelling and No tender Chest Chest palpation & inspection: normal inspection of the chest and normal palpation of entire chest wall Resp Effort & Inspection: normal respiratory effort and able to speak in complete sentences Auscultation: wheezes (mild) Cardio Jugular venous distension: no JVD Heart sounds: S1 normal heart sound present and S2 normal heart sound present GI Inspection: Yes normal to inspection and No abdominal wall ecchymosis Palpation (GI): Soft to palpation, not firm, nontender, no guarding and not rigid General: No CVA tenderness and Yes no CVA tenderness Back/Spine/Pelvis Back: no CVA tenderness, No CVA tenderness and No back tenderness Skin General skin exam: no rashes or lesions noted and elasticity normal Neuro General: patient oriented x3, gait normal, no meningeal signs and CN's II-XI intact bilaterally Cranial nerves: Yes CN's II-XII intact bilaterally Extrem General: Yes normal to inspection and Yes full ROM Psych Appearance: grossly normal, well kempt and not disheveled Course Course Course Narrative: Covid test ordered Reevaluation(s) Reevaluation #1: Covid test negative. Bronchitis. discharge with albuterol inhaler, azithromycin, and tessalon pearles Time: 21:26 Medical Decision Making [facility] Narrative Medical decision making narrative: Bronchitits Lab Data Labs: Lab Results 09/30/21 Range/Units 20:26 COVID-19 (KAREN) Negative (Negative) COVID-19 Clin Com See Note Discharge Plan Discharge Clinical Impression: Upper respiratory infection, Bronchitis Patient Disposition: Home, Self-Care Instructions: Acute Bronchitis (ED) Additional Instructions: Return to the ED for chest pain, shortness of breath, fever, chills, chest pain on inspiration, leg swelling, calf pain, or any other concerning symptosm. Please follow up wt PCp. Prescriptions: New albuterol sulfate 90 mcg/actuation HFA aerosol inhaler 2 puff inhalation QID PRN (Reason: shortness of breath or wheezing) Qty: 8.5 0RF azithromycin 250 mg tablet See Rx Instructions .ROUTE .COMPLEX Qty: 6 0RF Rx Instructions: For 250 mg dose pack: take 500 mg today (day 1), then 250 mg for 4 days (days 2-5) benzonatate 100 mg capsule 100 mg PO TID PRN (Reason: cough) 5 Days Qty: 15 0RF No Action amitriptyline 10 mg tablet 1 tab PO BEDTIME oxycodone-acetaminophen [Percocet] 5-325 mg tablet 1 tab PO Q4-6H PRN (Reason: pain, severe) Qty: 30 0RF ibuprofen 600 mg tablet 600 mg PO Q6H PRN (Reason: pain) Qty: 30 0RF ferrous sulfate 325 mg (65 mg iron) tablet 325 mg PO DAILY Qty: 30 2RF ondansetron 4 mg tablet,disintegrating 4 mg PO Q8H PRN (Reason: nausea and vomiting) Qty: 20 0RF Stand Alone Forms: Work/School Release Print Language: Armenian
== END 2021-09-30 22:28 | disposition home or self-care (01) ==
PROVIDERS: Emergency Provider Internal Medicine
DX: J40 Bronchitis, not specified as acute or chronic (principal); J06.9 Acute upper respiratory infection, unspecified; R05.9 Cough, unspecified; Z20.822 Contact with and (suspected) exposure to COVID-19; Z79.899 Other long term (current) drug therapy
CPT/HCPCS: 87635; 99282; 99283

== ENCOUNTER 2022-02-10 17:03 | Emergency (ER) | payer OTHER, SELFPAY ==
[2022-02-10 17:15] VITALS: BP 119/30; PULSE 61; RESP 18; TEMP 36.2; O2SAT 100; BMI 20.2
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
[2022-02-10] MEDS: Ibuprofen 600 MG TABLET PO (18:09)
[2022-02-10] MEDS: Cyclobenzaprine HCl 5 MG TABLET PO (18:09)
== END 2022-02-10 18:11 | disposition home or self-care (01) ==
PROVIDERS: Emergency Provider Emergency Medicine
DX: Z04.1 Encounter for examination and observation following transport accident (principal); M54.6 Pain in thoracic spine
CPT/HCPCS: 99283

== ENCOUNTER 2022-02-14 15:47 | Emergency (ER) | payer OTHER, SELFPAY ==
--- NOTE | ~2022-02-14 | XR_ITS ---
EXAMINATION: XR RIBS, BILATERAL CLINICAL INFORMATION: Bilateral rib cage pain COMPARISON: None TECHNIQUE: Frontal view the chest and 3 oblique views of the bilateral ribs were obtained. Palpable marker was placed along the lateral left lower chest FINDINGS: Lungs are clear. No consolidation, pneumothorax, or pleural effusion. The cardiomediastinal silhouette and pulmonary vasculature are normal. Osseous structures are unremarkable. Ribs are intact. No acute displaced fractures are identified. XR/XR ribs BI min 4V w CXR1V IMPRESSION: No displaced rib fracture seen.
[2022-02-14 16:29] VITALS: BP 116/61; PULSE 70; RESP 18; TEMP 36.8; O2SAT 100; BMI 20.2
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
[2022-02-14] MEDS: Ketorolac Tromethamine 15 MG/ML VIAL IM (21:01)
== END 2022-02-14 21:02 | disposition home or self-care (01) ==
PROVIDERS: Emergency Provider Student in an Organized Health Care Education/Training Program
DX: Z04.1 Encounter for examination and observation following transport accident (principal); M94.0 Chondrocostal junction syndrome [Tietze]
CPT/HCPCS: 71111; 96372; 99283; 99284; J1885

== ENCOUNTER 2023-03-10 11:42 | Emergency (ER) | payer OTHER, SELFPAY ==
[2023-03-10 11:55] VITALS: BP 113/51; PULSE 55; RESP 19; TEMP 36.6; O2SAT 98; BMI 21.3
--- NOTE | 2023-03-10 12:02 | ED.GENADULT ---
HPI - General Adult General Chief complaint: General Medical Stated complaint: Heavy Menstrual Cycle Anemia Diarrhea Time Seen by Provider: 03/10/23 12:00 Source: patient Mode of arrival: ambulatory Limitations: no limitations History of Present Illness HPI narrative: 32 yold female with pmh of cholycestectomy, gallstones presents to the ED for work note. patient states she was sent by her EMpolyer due to her excissevely using the bathroom for diarrhea and menstruation and wants her to get a work note. patient states she is on her menstruation and usually on her menstruation she has heavy bleed flow and diarrhea which requuires pad change and bathroom use. patient states no other complaints. Related Data Home Medications Medication Instructions Recorded Confirmed amitriptyline 10 mg tablet 1 tab PO BEDTIME 04/12/21 04/12/21 Previous Rx's Medication Instructions Recorded ferrous sulfate 325 mg (65 mg 325 mg PO DAILY #30 tabs 02/01/21 iron) tablet ondansetron 4 mg disintegrating 4 mg PO Q8H PRN nausea and 02/01/21 tablet vomiting #20 tabs ibuprofen 600 mg tablet 600 mg PO Q6H PRN pain #30 tabs 04/19/21 oxycodone-acetaminophen 5 mg-325 1 tab PO Q4-6H PRN pain, severe 04/19/21 mg tablet (Percocet) #30 tabs albuterol sulfate 90 mcg/actuation 2 puff inhalation QID PRN 09/30/21 aerosol inhaler shortness of breath or wheezing #8.5 grams azithromycin 250 mg tablet See Rx Instructions PO .COMPLEX #6 09/30/21 tabs benzonatate 100 mg capsule 100 mg PO TID PRN cough 5 days #15 09/30/21 caps cyclobenzaprine 5 mg tablet 5 mg PO BID PRN muscle spasm #10 02/10/22 tabs ibuprofen 600 mg tablet 600 mg PO Q8H PRN fever or pain 02/10/22 #20 tabs Allergies Allergy/AdvReac Type Severity Reaction Status Date / Time amoxicillin [AMOXICILLIN] Allergy Intermediate HIVES Verified 03/10/23 11:55 Penicillins [PENICILLINS] Allergy Mild HIVES Verified 03/10/23 11:55 oxycodone [From PERCOCET] AdvReac Intermediate NAUSEA & Verified 03/10/23 11:55 VOMITING Review of Systems Review of Systems: menstruation and diarrhea. Yes all other systems are reviewed and are negative PMFSH Past Medical History Onset Date is defined in the Problem List Problems that require an onset date and time if occurred within 24 hrs of arrival to the ED Aortic Dissection and Rupture; Neurologic impairment; Cardiopulmonary Arrest; Endotracheal Intubation; Insertion or Replacement of Mechanical Circulatory Assist Device Medical History Anemia Gallstones Hx MRSA infection Migraines No known health problems Surgical History History of laparoscopic cholecystectomy Hx of appendectomy Social History Social History Are you a primary health and social care teacher to a significant other at home: No Do you presently have visiting nurse or other home services: No Alcohol intake: never Patient Tobacco Use Status: Never used Tobacco Substance Use Type: Marijuana Advance Directives: No Advance Directives Information Provided: No Physical Exam ED Vital Signs: Vital Signs - 24 hr 03/10/23 11:55 Temperature 98 F Pulse Rate 55 Respiratory Rate 19 Blood Pressure 113/51 L Pulse Oximetry 98 BMI result Body Mass Index 21.3 Const General: cooperative, healthy appearing, comfortable, no acute distress, well developed, alert and awake Orientation/consciousness: oriented to person, oriented to place, oriented to time and patient oriented x3 [facility]: Yes normal to inspection, Yes No palpable skull fracture present, Yes normocephalic and Yes atraumatic Ears: hearing grossly normal bilaterally, external ears normal, TM's normal bilaterally, TM normal on the right, TM normal on the left, EAC's normal, mastoids normal and no periauricular adenopathy Throat: Yes posterior oropharynx normal, Yes tonsils normal and Yes uvula midline Eyes General: appearance normal, both eyes and all related structures Neck Neck: Yes normal visual inspection, Yes full ROM, Yes no lymphadenopathy, Yes no meningeal signs, Yes trachea midline, Yes supple, No anterior neck swelling and No tender Chest Chest palpation & inspection: normal inspection of the chest and normal palpation of entire chest wall Resp Effort & Inspection: normal respiratory effort and able to speak in complete sentences Auscultation: clear to auscultation bilaterally Cardio Jugular venous distension: no JVD Heart sounds: S1 normal heart sound present and S2 normal heart sound present GI Inspection: Yes normal to inspection Palpation (GI): Soft to palpation, not firm, nontender, no guarding and not rigid Other: did not want pelivic exam General: Yes no CVA tenderness Back/Spine/Pelvis Back: no CVA tenderness and No back tenderness Skin General skin exam: no rashes or lesions noted, elasticity normal and turgor normal Neuro General: oriented to person, oriented to place, oriented to time, patient oriented x3, gait normal, tone normal, moves all extremities, Normal light touch and pain sensation, no meningeal signs and no focal motor deficits Extrem General: Yes normal to inspection and Yes full ROM Psych Appearance: grossly normal, well kempt and not disheveled Course Course Course Narrative: RME: 32-year-old female presents to ED seeking work note for his cues from work. Patient was at work today and her menstruation started and usually on menstruation she has heavy flow and diarrhea which she is currently having. Patient patient had to go to the bathroom many times to have diarrhea and change her pads at work which caused and inconvenience for her employers. So they sent patient to the ED to get a work note. Patient denies any dizziness, nausea, vomiting, weakness. Labs was discussed due to patient having history of anemia but patient did not want labs patient is on iron pills. Patient has no shortness of breath, chest pain, or weakness. Patient is given good color. Patient not pale. Patient agreeable urine test to make sure she is not . [facility] [place] Medical Decision Making Medical Decision Making [facility] Narrative: 32-year-old female presents to ED seeking work note for her excuse from work. Patient was at work today and her menstruation started and usually on menstruation she has heavy flow and diarrhea which she is currently having. Patient patient had to go to the bathroom many times to have diarrhea and change her pads at work which caused an inconvenience for her employers. So they sent patient to the ED to get a work note. Patient denies any dizziness, nausea, vomiting, weakness. Labs was discussed due to patient having history of anemia but patient did not want labs patient is on iron pills. Patient has no shortness of breath, chest pain, or weakness. Patient skin good color. Patient not pale. Patient agreeable urine test to make sure she is not . UA.UCG negative. patient denies any abdominal pain Differential Diagnosis Differential Diagnoses: The differential diagnosis associated with the presentation includes (menstruation, diarrhea, dysmenorrhea) Lab Data MDM Lab Attestation statement: I reviewed the patient's lab results. Labs: Lab Results 03/10/23 Range/Units 12:03 Urine Color Yellow Urine Appearance Clear Urine pH 5.5 (5.0-9.0) Ur Specific [place] 1.020 (1.005-1.025) Urine Protein Negative (Neg-Trace) mg/dL Urine Glucose (UA) Negative (Negative) mg/dL Urine Ketones Negative (Negative) mg/dL Urine Blood Large (3+) H (Negative) Urine Nitrite Negative (Negative) Ur Leukocyte Esterase Negative (Negative) Urine RBC >20 H (0-2) /HPF Urine WBC 0-5 (0-5) /HPF Ur Squamous Epith Cells 0-2 (0-2) /HPF Urine Bacteria None Seen (None Seen) Hyaline Casts 0-2 (0-2) /LPF Urine Test NEGATIVE (NEGATIVE) External Record Review External record reviewed: Other (prior visist) Discharge Plan Discharge Clinical Impression: Menstrual cramps Patient Disposition: Home, Self-Care Instructions: Dysmenorrhea (ED) Additional Instructions: Return to the ED immediately for worsening or increase vaginal bleeding, nausea, vomiting, abdominal pain, weakness, dizziness, lightheadedness, skin turning pale, chest pain, shortness of breath, blood in stool, burning urination, or any other concerning symptoms. Please follow up with PCP. Prescriptions: No Action amitriptyline 10 mg tablet 1 tab PO BEDTIME oxycodone-acetaminophen [Percocet] 5-325 mg tablet 1 tab PO Q4-6H PRN (Reason: pain, severe) Qty: 30 0RF ibuprofen 600 mg tablet 600 mg PO Q6H PRN (Reason: pain) Qty: 30 0RF ferrous sulfate 325 mg (65 mg iron) tablet 325 mg PO DAILY Qty: 30 2RF ondansetron 4 mg tablet,disintegrating 4 mg PO Q8H PRN (Reason: nausea and vomiting) Qty: 20 0RF albuterol sulfate 90 mcg/actuation HFA aerosol inhaler 2 puff inhalation QID PRN (Reason: shortness of breath or wheezing) Qty: 8.5 0RF azithromycin 250 mg tablet See Rx Instructions .ROUTE .COMPLEX Qty: 6 0RF Rx Instructions: For 250 mg dose pack: take 500 mg today (day 1), then 250 mg for 4 days (days 2-5) benzonatate 100 mg capsule 100 mg PO TID PRN (Reason: cough) 5 Days Qty: 15 0RF cyclobenzaprine 5 mg tablet 5 mg PO BID PRN (Reason: muscle spasm) Qty: 10 0RF ibuprofen 600 mg tablet 600 mg PO Q8H PRN (Reason: fever or pain) Qty: 20 0RF Stand Alone Forms: Work/School Release Interventions: ED Discharge Assessment Last Done: 03/10/23 12:44 Discharge Date/Time: 03/10/23 12:45 Print Language: [place]ian
[2023-03-10 12:19] LABS: Appearance Urine Clear; Color Urine Yellow; Glucose Urine UA Negative (Negative); Leukocyte Esterase Urine Negative (Negative); Nitrite Urine Negative (Negative); PH 5.5 (5.0-9.0); UMIC TRIGGER UACC YES; Urine Blood Large (3+) (Negative); Urine Ketones Negative (Negative); Urine Protein Negative (Neg-Trace)
[2023-03-10 12:20] LABS: UPreg QC Valid YES; Urine Pregnancy NEGATIVE (NEGATIVE)
[2023-03-10 12:23] LABS: Bacteria Urine None Seen (None Seen); Hyaline Casts Urine 0-2 /LPF (0-2); RBC Urine >20 /HPF (0-2); Squamous Epithelial Cell Urine 0-2 /HPF (0-2); WBC Urine 0-5 /HPF (0-5)
== END 2023-03-10 12:45 | disposition home or self-care (01) ==
PROVIDERS: Physician Assistant; Emergency Provider Emergency Medicine Emergency Medical Services
DX: N92.0 Excessive and frequent menstruation with regular cycle (principal); D64.9 Anemia, unspecified; R10.2 Pelvic and perineal pain; Z79.899 Other long term (current) drug therapy
CPT/HCPCS: 81001; 81025; 99282

== ENCOUNTER 2023-04-08 13:08 | Emergency (ER) | payer OTHER, SELFPAY ==
--- NOTE | ~2023-04-08 | XR_ITS ---
EXAMINATION: XR WRIST, RIGHT XR HAND, RIGHT CLINICAL INFORMATION: Trauma. Punched window. COMPARISON: None available. TECHNIQUE: PA, lateral, and oblique views of the right wrist and PA, lateral, and oblique views of the right hand FINDINGS: RIGHT WRIST: The bones and soft tissues are normal. No fracture. Alignment is anatomic. Joint spaces are maintained. No erosions or soft tissue calcifications. RIGHT HAND: The bones and soft tissues are normal. No fracture. Alignment is anatomic. Joint spaces are maintained. No erosions or soft tissue calcifications. No soft tissue foreign body. XR/XR hand wrist RT IMPRESSION: No fracture or foreign body seen.
[2023-04-08 13:53] VITALS: BP 110/60; PULSE 89; RESP 18; TEMP 36.1; O2SAT 100; BMI 20.3
--- NOTE | 2023-04-08 14:27 | ED_ITS ---
HPI - Wound/Laceration General Chief Complaint: Wound/Laceration Stated Complaint: Finger injury Time Seen by Provider: 04/08/23 21:19 History of Present Illness HPI narrative: The patient is a 33-year-old woman who says this morning at around 10:30 she got upset and intended to punched a door and accidentally punched the window in the door. She sustained an injury to the dorsum of the ring finger with an avulsion of tissue which has had persistent bleeding ever since. She denies any other injuries. The patient is up-to-date on tetanus. Related Data Home Medications Medication Instructions Recorded Confirmed amitriptyline 10 mg tablet 1 tab PO BEDTIME 04/12/21 04/12/21 Previous Rx's Medication Instructions Recorded ferrous sulfate 325 mg (65 mg 325 mg PO DAILY #30 tabs 02/01/21 iron) tablet ondansetron 4 mg disintegrating 4 mg PO Q8H PRN nausea and 02/01/21 tablet vomiting #20 tabs ibuprofen 600 mg tablet 600 mg PO Q6H PRN pain #30 tabs 04/19/21 oxycodone-acetaminophen 5 mg-325 1 tab PO Q4-6H PRN pain, severe 04/19/21 mg tablet (Percocet) #30 tabs albuterol sulfate 90 mcg/actuation 2 puff inhalation QID PRN 09/30/21 aerosol inhaler shortness of breath or wheezing #8.5 grams azithromycin 250 mg tablet See Rx Instructions PO .COMPLEX #6 09/30/21 tabs benzonatate 100 mg capsule 100 mg PO TID PRN cough 5 days #15 09/30/21 caps cyclobenzaprine 5 mg tablet 5 mg PO BID PRN muscle spasm #10 02/10/22 tabs ibuprofen 600 mg tablet 600 mg PO Q8H PRN fever or pain 02/10/22 #20 tabs Allergies Allergy/AdvReac Type Severity Reaction Status Date / Time amoxicillin [AMOXICILLIN] Allergy Intermediate HIVES Verified 04/08/23 13:53 Penicillins [PENICILLINS] Allergy Mild HIVES Verified 04/08/23 13:53 oxycodone [From PERCOCET] AdvReac Intermediate NAUSEA & Verified 04/08/23 13:53 VOMITING Review of Systems Review of Systems: Yes all other systems are reviewed and are negative PMFSH Past Medical History Medical History Anemia Gallstones Hx MRSA infection Migraines No known health problems Surgical History History of laparoscopic cholecystectomy Hx of appendectomy Social History Social History Are you a primary career development specialist to a significant other at home: No Do you presently have visiting nurse or other home services: No Alcohol intake: never Patient Tobacco Use Status: Never used Tobacco Substance Use Type: Marijuana Advance Directives: No Advance Directives Information Provided: No Physical Exam Vital Signs: Vital Signs: Last Vital Signs Temp 96.9 F 04/08/23 13:53 Pulse 89 04/08/23 13:53 Resp 18 04/08/23 13:53 BP 110/60 04/08/23 13:53 Pulse Ox 100 04/08/23 13:53 O2 Del Method Room Air 04/08/23 13:53 BMI result Body Mass Index 20.3 Const: Other: The patient is awake, alert, pleasant, cooperative. She looks as though she is an ordinarily healthy 33-year-old. Skin: Other: There is an area of avulsed skin on the dorsum of the right ring finger about a sq cm in area. This is on the middle portion of the ring finger overlying the middle phalanx. There was diffuse oozing bleeding. There was no full-thickness injury. Neuro: Other: Intact function and sensation of the finger. Extrem: Other: There is an area of avulsed skin on the dorsum of the right ring finger overlying the middle phalanx. The area of avulsed skin is about 1 sq cm. There is no other apparent injury to the finger. There is no deformity. She can use the joints of the finger normally. The skin injury is not a full-thickness injury. Course Course Course Narrative: RME:?33 yo female here with lac to right 4th digit s/p punching window this morning. tetanus UTD. 2+ radial pulses. 4th digit wrapped extensively. will wait for eval in main ED. xrs ordered Full HPI, ROS and PE to be performed by the primary ED provider. Medical Decision Making Medical Decision Making MDM Narrative: The patient is an ordinarily healthy 33-year-old who sustained an injury to the dorsum of the right ring finger. She has an area of avulsed skin with persistent bleeding. No full-thickness injury. No evidence of a bony injury. She has a negative x-ray. She is up-to-date on tetanus. The wound was cleaned. I applied a finger tourniquet to stop bleeding and then applied a Surgicel gauze dressing. At after application of the Surgicel dressing the finger tourniquet was removed. The patient was observed. There was no immediate postprocedural bleeding. The patient will be discharged with instructions to keep the hand elevated. The difficulty with this management is the removal of the Surgicel dressing. I have advised her to contact the surgery office to see if she can be seen on Thursday for assistance with removal of the dressing and advice about ongoing management of the wound. If she can not get into see the surgery office she may contact your regular doctor's office or, failing that, she can return to the emergency room. She was given instructions about self removal but she feels that she would rather have the dressing removed in a medical setting. Discharge Plan Discharge Clinical Impression: Avulsion of skin of finger Patient Disposition: Home, Self-Care Instructions: Skin Avulsion (ED) Additional Instructions: Please keep your hand elevated to the level of your heart or higher tonight to help make sure this does not rebleed. Please contact Dr. Wiggins's office tomorrow to see if they can see you on Thursday to have the dressing removed and re-evaluated. Alternatively your regular doctor's office might see you. If you are unable to get into Dr. Wiggins's office or your regular doctor you may try to soak the dressing off at home in cold water. In order to do this you would remove all the easily removable parts of the dressing. Then there would be the special dressing which is against the skin and which will probably be adherent to the wound. You could then put this in cold water and very gently try to soak off the dressing. If there is no rebleeding you may simply put some bacitracin and a Band-Aid on the wound and then change the Band-Aid daily and as needed. Otherwise you may return to the emergency room for re-evaluation. Prescriptions: No Action amitriptyline 10 mg tablet 1 tab PO BEDTIME oxycodone-acetaminophen [Percocet] 5-325 mg tablet 1 tab PO Q4-6H PRN (Reason: pain, severe) Qty: 30 0RF ibuprofen 600 mg tablet 600 mg PO Q6H PRN (Reason: pain) Qty: 30 0RF ferrous sulfate 325 mg (65 mg iron) tablet 325 mg PO DAILY Qty: 30 2RF ondansetron 4 mg tablet,disintegrating 4 mg PO Q8H PRN (Reason: nausea and vomiting) Qty: 20 0RF albuterol sulfate 90 mcg/actuation HFA aerosol inhaler 2 puff inhalation QID PRN (Reason: shortness of breath or wheezing) Qty: 8.5 0RF azithromycin 250 mg tablet See Rx Instructions .ROUTE .COMPLEX Qty: 6 0RF Rx Instructions: For 250 mg dose pack: take 500 mg today (day 1), then 250 mg for 4 days (days 2-5) benzonatate 100 mg capsule 100 mg PO TID PRN (Reason: cough) 5 Days Qty: 15 0RF cyclobenzaprine 5 mg tablet 5 mg PO BID PRN (Reason: muscle spasm) Qty: 10 0RF ibuprofen 600 mg tablet 600 mg PO Q8H PRN (Reason: fever or pain) Qty: 20 0RF Referrals: Janusz Wiggins MD [Physician] - (Skin avulsion injury, bleeding controlled with Surgicel) Stand Alone Forms: Work/School Release
--- NOTE | 2023-04-08 21:32 | PC.NURSE ---
wrapping from triage removed finger continues to bleed. cleaned with sterile water/iodine unable to stop bleeding. non adherent pad applied and wrapped. Dr. Santos notified who came to bedside and put finger tourniquet on. surgicel applied and wrapped finger. +circulation & sensation. pt tolerated well. pt reports utd with tetanus immunization. nad. awaiting discharge.
== END 2023-04-08 22:34 | disposition home or self-care (01) ==
PROVIDERS: Emergency Provider Emergency Medicine
DX: S61.214A Laceration without foreign body of right ring finger without damage to nail, initial encounter (principal); W22.8XXA Striking against or struck by other objects, initial encounter; Y93.89 Activity, other specified; Y92.9 Unspecified place or not applicable; Y99.9 Unspecified external cause status
CPT/HCPCS: 12001; 73110; 73130; 99282; 99283

== ENCOUNTER 2023-11-15 08:34 | Emergency (ER) | payer OTHER, SELFPAY ==
[2023-11-15 08:46] VITALS: BP 113/65; PULSE 94; RESP 14; TEMP 37; O2SAT 99; BMI 20.4
--- NOTE | 2023-11-15 09:08 | ED.GENADULT ---
HPI - General Adult General Chief complaint: Upper Respiratory Symptoms Stated complaint: sore [id number] Time Seen by Provider: 11/15/23 09:08 History of Present Illness ED Provider: Danielle STEIN narrative: The patient is a very pleasant 33-year-old female who says that she has been sick since yesterday with a sore throat. She has also had chills and body aches. She says that her child had similar symptoms and was seen at the tower helper's office yesterday. The child apparently tested negative for strep and COVID and RSV. The patient's primary complaint is the sore throat. No significant cough. No shortness of breath. No chest pain. The patient works at an [employer] facility where she has to be very active and interact with other people. She feels quite run down. Related Data Home Medications ?Medication ?Instructions ?Recorded ?Confirmed amitriptyline 10 mg tablet 1 tab PO BEDTIME 04/12/21 04/12/21 Previous Rx's ?Medication ?Instructions ?Recorded ferrous sulfate 325 mg (65 mg 325 mg PO DAILY #30 tabs 02/01/21 iron) tablet ondansetron 4 mg disintegrating 4 mg PO Q8H PRN nausea and 02/01/21 tablet vomiting #20 tabs ibuprofen 600 mg tablet 600 mg PO Q6H PRN pain #30 tabs 04/19/21 oxycodone-acetaminophen 5 mg-325 1 tab PO Q4-6H PRN pain, severe 04/19/21 mg tablet (Percocet) #30 tabs albuterol sulfate 90 mcg/actuation 2 puff inhalation QID PRN 09/30/21 aerosol inhaler shortness of breath or wheezing #8.5 grams azithromycin 250 mg tablet See Rx Instructions PO .COMPLEX #6 09/30/21 tabs benzonatate 100 mg capsule 100 mg PO TID PRN cough 5 days #15 09/30/21 caps cyclobenzaprine 5 mg tablet 5 mg PO BID PRN muscle spasm #10 02/10/22 tabs ibuprofen 600 mg tablet 600 mg PO Q8H PRN fever or pain 02/10/22 #20 tabs Allergies Allergy/AdvReac Type Severity Reaction Status Date / Time amoxicillin [AMOXICILLIN] Allergy Intermediate HIVES Verified 11/15/23 08:48 Penicillins [PENICILLINS] Allergy Mild HIVES Verified 11/15/23 08:48 oxycodone [From PERCOCET] AdvReac Intermediate NAUSEA & Verified 11/15/23 08:48 VOMITING Review of Systems Review of Systems: Yes all other systems are reviewed and are negative [facility] Past Medical History Medical History Anemia Gallstones Hx MRSA infection Migraines No known health problems Surgical History History of laparoscopic cholecystectomy Hx of appendectomy Social History Social History Are you a primary career placement services counselor to a significant other at home: No Do you presently have visiting nurse or other home services: No Alcohol intake: never Patient Tobacco Use Status: Never used Tobacco Substance Use Type: Marijuana Advance Directives: No Advance Directives Information Provided: Yes Do you have a plan to hurt others: No Plan Physical Exam ED Vital Signs: Vital Signs - 24 hr 11/15/23 08:46 11/15/23 10:01 Temperature 98.6 F 98.6 F Pulse Rate 94 94 Respiratory Rate 14 14 Blood Pressure 113/65 113/65 Pulse Oximetry 99 99 Oxygen Delivery Method Room Air Room Air BMI result Body Mass Index 20.4 Const Other: The patient is a slim 33-year-old who was awake and alert. She has a slightly hoarse voice but otherwise seems not obviously ill. HENMT Other: The face is symmetrical. The posterior pharynx shows some very minimal erythema. No significant tonsillar tissue was present. No exudate. No trismus. No intraoral swelling of any significance. Airway clear. Eyes General: appearance normal, both eyes and all related structures Eyelids: Yes eyelids normal Conjunctivae: conjunctivae normal Sclerae: sclerae normal EOM: EOMs intact bilaterally Neck Other: Possibly some minimal jugulodigastric adenopathy but this is an equivocal finding. For the most part no significant adenopathy. Neck is supple and benign. Resp Other: No wheezes or crackles. Effort & Inspection: normal respiratory effort Auscultation: clear to auscultation bilaterally Cardio Rate: regular rate Rhythm: regular rhythm Heart sounds: S1 normal heart sound present and S2 normal heart sound present Skin General skin exam: no rashes or lesions noted Neuro Other: Awake and alert with a normal mental status. The patient is grossly neurologically intact. Extrem Other: No peripheral edema Medical Decision Making Medical Decision Making MDM Narrative: The patient is a 33-year-old who presents with symptoms of pharyngitis. Apparently her child had similar symptoms. Her child has tested negative for strep and COVID and RSV at the tower [facility] office yesterday. The patient today is testing negative for strep, COVID, RSV, and influenza. Clinically she seems to have a viral URI. She will be given a work note. Lab Data Labs: Lab Results 11/15/23 Range/Units 08:52 Influenza Type A (PCR) NEGATIVE (Negative) Influenza Type B (PCR) NEGATIVE (Negative) RSV RNA Qual (PCR) NEGATIVE (Negative) SARS-CoV-2 RNA (RT-PCR) NEGATIVE (Negative) S. pyogenes GrpA KIRIT Negative (Negative) Discharge Plan Discharge Clinical Impression: Acute viral pharyngitis Patient Disposition: Home, Self-Care Instructions: Pharyngitis (ED), Upper Respiratory Infection (ED) Additional Instructions: You have tested negative for strep today. You have also tested negative for COVID, RSV, and influenza. I think you have a viral pharyngitis or upper respiratory infection caused by some other nonspecific virus. Please plan on resting and taking it easy today. You may use acetaminophen and ibuprofen as needed for discomfort. Drink lot of fluids. If you feel well enough you may return to work tomorrow. Please plan on following up with your regular doctor as needed. Return to the emergency room if you feel significantly worse. Prescriptions: No Action amitriptyline 10 mg tablet 1 tab PO BEDTIME oxycodone-acetaminophen [Percocet] 5-325 mg tablet 1 tab PO Q4-6H PRN (Reason: pain, severe) Qty: 30 0RF ibuprofen 600 mg tablet 600 mg PO Q6H PRN (Reason: pain) Qty: 30 0RF ferrous sulfate 325 mg (65 mg iron) tablet 325 mg PO DAILY Qty: 30 2RF ondansetron 4 mg tablet,disintegrating 4 mg PO Q8H PRN (Reason: nausea and vomiting) Qty: 20 0RF albuterol sulfate 90 mcg/actuation HFA aerosol inhaler 2 puff inhalation QID PRN (Reason: shortness of breath or wheezing) Qty: 8.5 0RF azithromycin 250 mg tablet See Rx Instructions .ROUTE .COMPLEX Qty: 6 0RF Rx Instructions: For 250 mg dose pack: take 500 mg today (day 1), then 250 mg for 4 days (days 2-5) benzonatate 100 mg capsule 100 mg PO TID PRN (Reason: cough) 5 Days Qty: 15 0RF cyclobenzaprine 5 mg tablet 5 mg PO BID PRN (Reason: muscle spasm) Qty: 10 0RF ibuprofen 600 mg tablet 600 mg PO Q8H PRN (Reason: fever or pain) Qty: 20 0RF Referrals: [facility] [Provider Group] (Viral URI) Stand Alone Forms: Work/School Release Interventions: ED Discharge Assessment Last Done: 11/15/23 10:01 Discharge Date/Time: 11/15/23 10:01 Print Language: Azeri
[2023-11-15 09:19] LABS: IDNOW Serial# 08D9AD1C; Strep A Nucleic Acid Negative (Negative)
[2023-11-15 09:35] LABS: Influenza A PCR NEGATIVE (Negative); Influenza B PCR NEGATIVE (Negative); Resp Syncy Virus RNA Qual PCR NEGATIVE (Negative); SARS COV2 PCR INHOUSE NEGATIVE (Negative)
[2023-11-15 10:01] VITALS: BP 113/65; PULSE 94; RESP 14; TEMP 37; O2SAT 99
== END 2023-11-15 10:01 | disposition home or self-care (01) ==
PROVIDERS: Emergency Provider Emergency Medicine
DX: J02.8 Acute pharyngitis due to other specified organisms (principal); R11.0 Nausea; Z79.899 Other long term (current) drug therapy
CPT/HCPCS: 0241U; 87651; 99282; 99283